=== PATIENT | male | born 1995 | race African-American/Black ===

== ENCOUNTER 2016-11-14 | Emergency (ER) | payer MEDICAID | END 2016-11-14 07:45 | disposition home or self-care (01) | DX: J10.1 Influenza due to other identified influenza virus with other respiratory manifestations (principal) ==

== ENCOUNTER 2017-10-08 13:09 | Emergency (ER) | payer SELFPAY ==
[2017-10-08] MEDS ORDERED: ONDANSETRON 4 MG/2 ML VIAL IVP STA (15:13)
[2017-10-08] MEDS ORDERED: KETOROLAC 60 MG/2 ML VIAL IVP STA (15:13)
[2017-10-08] MEDS ORDERED: DIPHENOX/ATROPINE 2.5/0.025 MG TABLET PO STA (15:13)
[2017-10-08] MEDS ORDERED: SODIUM CHLORIDE 0.9% 1,000 ML IV ONE ×2 (15:13→15:14)
--- NOTE | 2017-10-08 15:13 | ED Physician Documentation ---
PD HPI NVD - Stated complaint Stated Complaint: N/V/D HEADACHE - Chief complaint Chief Complaint: Abd Pain - History obtained from History obtained from: Patient - History of Present Illness Timing - onset: How many weeks ago (1) Timing - duration: Weeks (1has had malaise and weakness for a week, with few days of nausea and vomiting as well. Unable to keep down recent intakes. No bloating nor distension. Some diarrhea as well.) Timing - details: Gradual onset, Still present Associated symptoms: Abdominal pain (cramping intermittent), Loss of appetite. No: Fever, Hematemesis, Melena, Weight loss Contributing factors: No: Sick contact, Bad food, Travel Review of Systems Constitutional: reports: Chills, Myalgias Nose: reports: Rhinorrhea / runny nose, Congestion Throat: denies: Dental pain / toothache, Sore throat Cardiac: denies: Chest pain / pressure, Palpitations, Pedal edema, Calf pain Respiratory: denies: Dyspnea, Cough GI: reports: Nausea, Vomiting, Diarrhea Skin: denies: Rash PD PAST MEDICAL HISTORY - Past Medical History Cardiovascular: None Respiratory: None Neuro: None Psych: ADD/ADHD - Past Surgical History Past Surgical History: No - Present Medications Home Medications: Ambulatory Orders Medication Instructions Recorded Confirmed Benzonatate [Tessalon Perle] 100 mg PO TID PRN #20 capsule 11/14/16 10/08/17 Cetirizine HCl/Pseudoephedrine 1 each PO BID PRN #30 tab.er.12h 11/14/16 [Zyrtec-D Tablet] Ibuprofen [Motrin] 800 mg PO Q8H PRN #30 tablet 11/14/16 10/08/17 Dicyclomine [Bentyl] 20 mg PO QID PRN #10 capsule 10/08/17 Diphenoxylate HCl/Atropine 1 each PO Q6H PRN #12 tablet 10/08/17 [Diphenoxylate-Atrop 2.5-0.025] Ondansetron Odt [Zofran] 4 mg TL Q6H PRN #10 tablet 10/08/17 - Allergies Allergies/Adverse Reactions: Allergies Allergy/AdvReac Type Severity Reaction Status Date / Time No Known Drug Allergies Allergy Verified 11/14/16 07:13 - Social History Does the pt smoke?: No Smoking Status: Never smoker Does the pt drink ETOH?: No Does the pt have substance abuse?: Yes Substance Use and Type: Marijuana - Immunizations Immunizations are current?: No - POLST Patient has POLST: No PD ED PE NORMAL - Vitals Vital signs reviewed: Yes - General General: Alert and oriented X 3, No acute distress, Well developed/nourished - HEENT HEENT: Atraumatic, Ears normal, Pharynx benign. No: Moist mucous membranes - Neck Neck: Supple, no meningeal sign, No adenopathy - Cardiac Cardiac: RRR, No murmur - Respiratory Respiratory: Clear bilaterally - Abdomen Abdomen: Normal bowel sounds, Soft, Non tender, Non distended - Back Back: No CVA TTP - Derm Derm: Warm and dry, No rash - Extremities Extremities: No tenderness to palpate, Normal ROM s pain - Neuro Neuro: Alert and oriented X 3, No motor deficit, Normal speech Results - Vitals Vitals: Oxygen O2 Source Room air - Labs Labs: Laboratory Tests 10/08/17 15:24 Sodium 135 Potassium 3.2 L Chloride 101 Carbon Dioxide 25 Anion Gap 9.0 BUN 14 Creatinine 1.0 Estimated GFR (MDRD) 113 Glucose 87 Calcium 9.1 Total Bilirubin 1.6 H AST 23 ALT 38 Alkaline Phosphatase 92 Total Protein 8.0 Albumin 4.6 Globulin 3.4 Albumin/Globulin Ratio 1.4 Lipase 17 L PD MEDICAL DECISION MAKING - ED course Complexity details: re-evaluated patient (feeling better with fluids and meds. ) , considered differential, d/w patient Departure - Departure Disposition: 01 Home, Self Care Clinical Impression: Nausea vomiting and diarrhea Condition: Stable Record reviewed to determine appropriate education?: Yes Instructions: ED Nausea Vomiting Prescriptions: Dicyclomine [Bentyl] 20 mg PO QID PRN #10 capsule PRN Reason: Spasms Diphenoxylate HCl/Atropine [Diphenoxylate-Atrop 2.5-0.025] 1 each PO Q6H PRN # 12 tablet PRN Reason: Diarrhea Ondansetron Odt [Zofran] 4 mg TL Q6H PRN #10 tablet PRN Reason: Nausea / Vomiting Comments: Small frequent fluids and bland food initially such as carbohydrates rice pasta and breads. Progress diet as able. Use ondansetron if needed for nausea. Diphenoxylate if needed for diarrhea. He can use dicyclomine if needed for cramps. Tylenol is also good for just pains. There likely is some stomach irritation and so consider some antacids if needed for heartburn or reflux. I would expect this to improve over the next day or 2. Recheck if not improved in that time. Forms: Activity restrictions Discharge Date/Time: 10/08/17 16:38
[2017-10-08] MEDS ORDERED: DICYCLOMINE 10 MG CAPSULE PO STA (15:14)
[2017-10-08] MEDS ORDERED: DIPHENOX/ATROPINE 2.5/0.025 MG TABLET PO ONE (15:38)
[2017-10-08] MEDS ORDERED: ONDANSETRON 4 MG/2 ML VIAL ONE (15:38)
[2017-10-08] MEDS ORDERED: DICYCLOMINE 10 MG CAPSULE PO ONE (15:39)
[2017-10-08] MEDS ORDERED: KETOROLAC 30 MG/ML VIAL ONE (15:39)
[2017-10-08 15:41] VITALS: BP 124/82
[2017-10-08 15:41] LABS: ALBUMIN/GLOBULIN RATIO 1.4 (1.0-2.2); BILIRUBIN,TOTAL 1.6 mg/dL (0.2-1.0); CALCIUM 9.1 mg/dL (8.5-10.3); POTASSIUM 3.2 mmol/L (3.5-5.0)
== END 2017-10-08 16:38 | disposition home or self-care (01) ==
LOC: ED 13:09
DX: R11.2 Nausea with vomiting, unspecified (principal); R19.7 Diarrhea, unspecified
CPT/HCPCS: 36415; 80053; 83690; 96361; 96374; 96375; 99283; 99284; A9270

== ENCOUNTER 2019-07-24 16:17 | Emergency (ER) | payer OTHER ==
[2019-07-24] MEDS ORDERED: CHERRY SYRUP 10 ML UDC PO ONE (16:38)
[2019-07-24] MEDS ORDERED: DEXAMETHASONE 10 MG/ML VIAL PO STA (16:38)
[2019-07-24] MEDS ORDERED: KETOROLAC 60 MG/2 ML VIAL IM STA (16:39)
--- NOTE | 2019-07-24 16:41 | ED Physician Documentation ---
PD HPI BACK INJURY - Stated complaint Stated Complaint: BACK PAIN - History obtained from History obtained from: Patient - History of Present Illness Location: Lower Type of injury: Other (over use at work) Where injury occurred: Work Timing - onset: How many days ago (2) Timing - duration: Days (2) Timing - details: Abrupt onset, Still present Quality: Pain, Spasm, Sharp Improved by: Rest Worsened by: Moving, Palpating Associated symptoms: No: Fever, Weakness, Numbness, Incontinent of urine, Unable to urinate, Hematuria, Incontinent of stool Contributing factors: No: Anticoagulated Similar symptoms before: Has not had sx before Recently seen: Not recently seen - Additional information Additional information: Large strong 24-year-old male 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 He has had to be working hunched over since then and he is now come to the emergency department with 2 days of severe back pain in his work is asked him to come in for evaluation. He is not able to perform his duties. Review of Systems Constitutional: denies: Fever Eyes: denies: Decreased vision Ears: denies: Ear pain Nose: denies: Congestion Throat: denies: Sore throat Cardiac: denies: Chest pain / pressure Respiratory: denies: Cough GI: denies: Nausea, Vomiting PD PAST MEDICAL HISTORY - Past Medical History Past Medical History: No Cardiovascular: None Respiratory: None Neuro: None Endocrine/Autoimmune: None GI: None : None HEENT: None Psych: ADD/ADHD Musculoskeletal: None Derm: None - Past Surgical History Past Surgical History: No - Present Medications Home Medications: Ambulatory Orders Medication Instructions Recorded Confirmed Benzonatate [Tessalon Perle] 100 mg PO TID PRN #20 capsule 11/14/16 10/08/17 Cetirizine HCl/Pseudoephedrine 1 each PO BID PRN #30 tab.er.12h 11/14/16 10/08/17 [Zyrtec-D Tablet] Ibuprofen [Motrin] 800 mg PO Q8H PRN #30 tablet 11/14/16 10/08/17 Dicyclomine [Bentyl] 20 mg PO QID PRN #10 capsule 10/08/17 Diphenoxylate HCl/Atropine 1 each PO Q6H PRN #12 tablet 10/08/17 [Diphenoxylate-Atrop 2.5-0.025] Ondansetron Odt [Zofran] 4 mg TL Q6H PRN #10 tablet 10/08/17 Cyclobenzaprine [Flexeril] 10 mg PO TID PRN #20 tablet 07/24/19 Hydrocodone/Acetaminophen 1 - 2 each PO Q6H PRN #14 tablet 07/24/19 [Hydrocodon-Acetaminophen 5-325] - Allergies Allergies/Adverse Reactions: Allergies Allergy/AdvReac Type Severity Reaction Status Date / Time No Known Drug Allergies Allergy Verified 07/24/19 16:22 - Social History Does the pt smoke?: No Smoking Status: Never smoker Does the pt drink ETOH?: No Does the pt have substance abuse?: Yes Substance Use and Type: Marijuana - Immunizations Immunizations are current?: No - POLST Patient has POLST: No PD ED PE NORMAL - Vitals Vital signs reviewed: Yes (hypertensive ) - General General: Alert and oriented X 3, No acute distress, Well developed/nourished - HEENT HEENT: Atraumatic, PERRL, EOMI - Neck Neck: Supple, no meningeal sign, No bony TTP - Respiratory Respiratory: No respiratory distress - Back Back: No CVA TTP, No spinal TTP, Other (There is some tenderness and firm muscles to the lower lumbar spine bilaterally to the paraspinous muscles. ) - Derm Derm: Normal color, Warm and dry, No rash - Extremities Extremities: No deformity, No edema - Neuro Neuro: Alert and oriented X 3, gear straightener 2-12 intact, No motor deficit, No sensory deficit, Normal speech Eye Opening: Spontaneous Motor: Obeys Commands Verbal: Oriented GCS Score: 15 - Psych Psych: Normal mood, Normal affect Results - Vitals Vitals: Vital Signs - 24 hr 07/24/19 16:22 Temperature 36.9 C Heart Rate 63 Respiratory 15 Rate Blood Pressure 157/105 H O2 Saturation 98 Oxygen O2 Source Room air PD MEDICAL DECISION MAKING - ED course Complexity details: considered differential, d/w patient, d/w family ED course: 24-year-old male with acute lumbar strain with significant spasm is administered dexamethasone 10 mg orally and Toradol 60 mg IM we will place him on a short course of pain medication a muscle relaxant and expect resolution. He is instructed to ice and stretch and avoid using heating pack. Departure - Departure Disposition: 01 Home, Self Care Clinical Impression: Acute lumbar myofascial strain Qualifiers: Encounter type: initial encounter Qualified Code(s): S39.012A - Strain of muscle, fascia and tendon of lower back, initial encounter Condition: Stable Instructions: ED Low Back Pain Injury Follow-Up: [facility] [Provider Group] Prescriptions: Cyclobenzaprine [Flexeril] 10 mg PO TID PRN #20 tablet PRN Reason: Spasms Hydrocodone/Acetaminophen [Hydrocodon-Acetaminophen 5-325] 1 - 2 each PO Q6H PRN #14 tablet PRN Reason: pain Forms: Activity restrictions
[2019-07-24 17:15] VITALS: BP 154/100
== END 2019-07-24 17:15 | disposition home or self-care (01) ==
LOC: ED 16:17
DX: S39.012A Strain of muscle, fascia and tendon of lower back, initial encounter (principal); X50.1XXA Overexertion from prolonged static or awkward postures, initial encounter; Y93.89 Activity, other specified; Y99.0 Civilian activity done for income or pay; M62.830 Muscle spasm of back
CPT/HCPCS: 1040M; 99282; 99284; A9270

== ENCOUNTER 2019-10-13 18:26 | Emergency (ER) | payer OTHER ==
--- NOTE | 2019-10-13 20:44 | ED Physician Documentation ---
History of Present Illness - Stated complaint Stated Complaint: BACK PAIN - Chief complaint Chief Complaint: Back Pain - Additonal information Additional information: This is a 24-year-old male with history of back pain who presents with rec urrence of his back pain. He states that he has had back pain intermittently since he was 18, he is usually diagnosed with having muscle spasms, and prescribed various courses of anti-inflammatories or muscle relaxants, and his pain usually will get better, but he has had recurrences of this several times in the last year. 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 He has never had imaging of his back. He denies any bowel or bladder changes. No numbness or tingling or weakness in his legs. No fever. No trauma to the back. Review of Systems Constitutional: denies: Fever Cardiac: denies: Chest pain / pressure GI: denies: Abdominal Pain : denies: Dysuria Skin: denies: Rash Neurologic: denies: Generalized weakness Immunocompromised: denies: Immunocompromised PD PAST MEDICAL HISTORY - Past Medical History Past Medical History: Yes Cardiovascular: None Respiratory: None Neuro: None Endocrine/Autoimmune: None GI: None : None HEENT: None Psych: ADD/ADHD Musculoskeletal: Chronic back pain Derm: None - Past Surgical History Past Surgical History: No - Present Medications Home Medications: Ambulatory Orders Medication Instructions Recorded Confirmed Cyclobenzaprine [Flexeril] 10 mg PO TID PRN #20 tablet 10/13/19 - Allergies Allergies/Adverse Reactions: Allergies Allergy/AdvReac Type Severity Reaction Status Date / Time No Known Drug Allergies Allergy Verified 10/13/19 20:10 - Social History Does the pt smoke?: No Smoking Status: Never smoker Does the pt drink ETOH?: No Does the pt have substance abuse?: Yes - Immunizations Immunizations are current?: Yes - POLST Patient has POLST: No PD ED PE NORMAL - Vitals Vital signs reviewed: Yes - General General: Alert and oriented X 3, No acute distress - HEENT HEENT: Atraumatic - Neck Neck: Supple, no meningeal sign - Cardiac Cardiac: RRR - Respiratory Respiratory: No respiratory distress - Back Back: Other (Midline tenderness in the region of L3, and some paraspinous tenderness bilaterally as well. No overlying skin changes no step-offs, no bruising) - Derm Derm: Warm and dry - Extremities Extremities: No deformity - Neuro Neuro: Alert and oriented X 3, Other (5 out of 5 strength with knee extension and flexion, ankle dorsiflexion and plantarflexion, sensation light touch intact over all extremities) - Psych Psych: Normal mood, Normal affect Results - Vitals Vitals: Oxygen O2 Source Room air - Rads (name of study) XR lumbar Radiology: Other (Mild lower lumbar degenerative changes) PD MEDICAL DECISION MAKING - ED course Complexity details: considered differential (Spasm, degenerative changes, disc disease, sciatica, fracture, tumor/mass) ED course: Patient presents with recurrence of back discomfort which has come and gone over a number of years. He does have some midline tenderness on my exam, and his straight leg raise test is positive as well. He has no red flag symptoms, no cancer history, no fever, no bowel or bladder changes, no weakness or numbness. His neurologic exam is reassuring. He has not had any imaging of his back in the past, and given The multiple recurrences of his pain as well as his midline tenderness x-rays were obtained and show degenerative changes without any acute osseous abnormalities. His discomfort is reproducible, and appears to be musculoskeletal. He was given Valium and ibuprofen and on recheck he had significant improvement in his pain. I discussed the results with him, discussed supportive care, PCP follow-up, and return to the emergency department with any new or concerning symptoms. I also discussed how to protect his back while working. Patient agreed to this plan. I prescribed him Flexeril, and he was discharged home in the care of his partner. Departure - Departure Disposition: 01 Home, Self Care Clinical Impression: Back pain Qualifiers: Back pain location: low back pain Chronicity: acute Back pain laterality: bilateral Sciatica presence: with sciatica Sciatica laterality: sciatica laterality unspecified Qualified Code(s): M54.40 - Lumbago with sciatica, unspecified side Condition: Good Instructions: ED Low Back Pain Injury Follow-Up: Your,PCP [Other] - Within 1 week Prescriptions: Cyclobenzaprine [Flexeril] 10 mg PO TID PRN #20 tablet PRN Reason: Spasms Comments: Your x-ray showed some degenerative changes, or wear tear of your back. It is possible you have inflammation or compression of the nerves that exit your back, which can cause pain shooting down your legs. Please avoid straining or activities that make your pain worse, take Tylenol 650 mg every 6 hours, ibuprofen 600 mg every 6 hours, and the Flexeril if needed. If you develop weakness in your legs, difficulty using the bathroom, or any other concerning symptoms, return to the emergency department. Otherwise please follow-up with your primary care provider on your back pain, if this is a recurring issue they may consider physical therapy or further imaging of your back in the future. Forms: Activity restrictions Discharge Date/Time: 10/13/19 21:55
[2019-10-13] MEDS ORDERED: diazePAM 5 MG TABLET PO STA (20:55)
[2019-10-13] MEDS ORDERED: ACETAMINOPHEN 325 MG TABLET PO STA (20:55)
[2019-10-13] MEDS ORDERED: IBUPROFEN 600 MG TABLET PO STA (20:55)
--- NOTE | 2019-10-13 21:46 | XRAY Report ---
Reason: Persistent lower back pain, never had imaging Procedure Date: 10/13/2019 Accession Number: [id number] / [id number] Procedure: XR - Lumbar Spine 2 View CPT Code: Final Report FULL RESULT: EXAM: LUMBOSACRAL SPINE RADIOGRAPHY EXAM DATE: 10/13/2019 09:21 PM. CLINICAL HISTORY: Persistent lower back pain, never had imaging. COMPARISONS: None. TECHNIQUE: 3 views. FINDINGS: Alignment: Normal. No spondylolisthesis or scoliosis. Bones: Five [id number] lumbar vertebral bodies are present. No fracture or bone lesion visualized. Disks: Problem mild disk height loss at L5-S1. Facets: Question mild lower lumbar facet arthrosis. Sacroiliac Joints: Unremarkable. Soft Tissues: Unremarkable. IMPRESSION: Mild lower lumbar degenerative changes. [facility]
[2019-10-13 21:58] VITALS: BP 130/74
== END 2019-10-13 21:55 | disposition home or self-care (01) ==
LOC: ED 18:26
DX: M47.26 Other spondylosis with radiculopathy, lumbar region (principal)
CPT/HCPCS: 72100; 99283; 99284; A9270